=== PATIENT | female | born 1990 | race Caucasian/White ===

== ENCOUNTER 2017-10-10 10:57 | Outpatient (CLI) | payer OTHER | END 2017-10-10 13:01 | disposition home or self-care (01) | LOC: M LDO 10:57 | DX: O26.893 Other specified pregnancy related conditions, third trimester (principal); Z3A.35 35 weeks gestation of pregnancy; O99.213 Obesity complicating pregnancy, third trimester | CPT/HCPCS: 59025 ==

== ENCOUNTER 2017-10-15 22:30 | Outpatient (CLI) | payer OTHER | END 2017-10-15 23:45 | disposition home or self-care (01) | LOC: M LDO 22:30 | DX: Z03.79 Encounter for other suspected maternal and fetal conditions ruled out (principal); Z3A.36 36 weeks gestation of pregnancy | CPT/HCPCS: 59025 ==

== ENCOUNTER 2017-10-25 06:45 | Inpatient (IN) | payer OTHER ==
[2017-10-25] MEDS: LR 1,000 ML IV (09:55)
[2017-10-25] MEDS ORDERED: OXYTOCIN 30 UNITS IN 0.9% NaCl 500ML IV BAG (J2590) As Ordered (10:11)
[2017-10-25] MEDS: OXYTOCIN DRIP 30 UNITS in APPROPRIATE DILUENT 1 EA IV ×2 (10:19→19:05)
[2017-10-25 10:21] LABS: HEMATOCRIT 28.6 % (36.0-47.0); MEAN CORPUSCULAR HEMOGLOBIN 25.6 pg (27.0-33.0); MEAN CORPUSCULAR HGB CONC 31.5 g/dl (32.0-36.5); MEAN CORPUSCULAR VOLUME 81.5 fl (80.0-96.0); PLATELET COUNT, AUTOMATED 262 10^3/uL (150-450); RED BLOOD COUNT 3.51 10^6/uL (4.00-5.40); RED CELL DISTRIBUTION WIDTH 15.6 % (11.5-14.5); WHITE BLOOD COUNT 9.3 10^3/uL (4.0-10.0)
[2017-10-25] MEDS: LACTATED RINGER'S 1000 ML IV (13:25)
[2017-10-25] MEDS ORDERED: FENTANYL 2MCG/ML ROPIVACAINE 0.2% IN 0.9% NACL 200ML IVBAG As Ordered (13:48)
[2017-10-25] MEDS ORDERED: NALOXONE INJ 0.4 MG/1 ML VIAL (J2310) IV (15:30)
[2017-10-25] MEDS ORDERED: LACTATED RINGER'S 1000 ML IV (15:30)
[2017-10-25] MEDS ORDERED: diphenhydrAMINE INJ 50MG/ML VIAL (J1200) IV (15:30)
[2017-10-25] MEDS ORDERED: EPIDURAL/PCA KEYS XX (15:30)
[2017-10-25] MEDS ORDERED: REFRIGERATOR IV KEYS XX (15:30)
[2017-10-25] MEDS ORDERED: ONDANSETRON 4MG/2ML VIAL (J2405) IV (15:30)
[2017-10-25] MEDS ORDERED: ePHEDrine SULFATE 25 MG/5 ML(5MG/ML) SYRINGE IV (15:30)
[2017-10-25] MEDS ORDERED: FENTANYL/ROPIVACAINE/NACL BAG 200 ML EPIDURAL (15:30)
[2017-10-25] MEDS ORDERED: EPIDURAL COMMENT XX (15:30)
[2017-10-25] MEDS ORDERED: METOCLOPRAMIDE INJ 10MG/2ML VIAL (J2765) IV (19:15)
[2017-10-25] MEDS ORDERED: MEASLES,MUMPS,RUBELLA VACCINE INJ (MMR-II) (90707) SC (19:15)
[2017-10-25] MEDS ORDERED: RHOGAM 300 MCG (1500 IU) INJ (J2790) IM (19:15)
[2017-10-25] MEDS ORDERED: DIBUCAINE 1% OINTMENT 30GM TOP (19:15)
[2017-10-25] MEDS: DOCUSATE SODIUM 100 MG CAP PO (22:15)
[2017-10-25] MEDS: IBUPROFEN 800 MG TAB PO (22:16)
[2017-10-26] MEDS: ACETAMINOPHEN TAB 650MG DOSE (2X325MG) PO (01:24)
[2017-10-26] MEDS: PRENATAL VITAMINS CHEWABLE TABLET PO (09:40)
[2017-10-26] MEDS: DOCUSATE SODIUM 100 MG CAP PO ×2 (09:40→20:35)
[2017-10-26] MEDS: IBUPROFEN 800 MG TAB PO (12:46)
[2017-10-27] MEDS: DOCUSATE SODIUM 100 MG CAP PO (10:08)
[2017-10-27] MEDS: PRENATAL VITAMINS CHEWABLE TABLET PO (10:09)
== END 2017-10-27 12:25 | disposition home or self-care (01) | DRG 775 ==
LOC: M LDO 06:45 → M LDI 09:24 → M OBS 20:56
PROVIDERS: Obstetrics & Gynecology
PROC: 10E0XZZ Delivery of Products of Conception, External Approach (ICD-10-PCS; principal; 2017-10-26)
DX: O42.02 Full-term premature rupture of membranes, onset of labor within 24 hours of rupture (principal); O99.02 Anemia complicating childbirth; Z3A.37 37 weeks gestation of pregnancy; D64.9 Anemia, unspecified; Z37.0 Single live birth

== ENCOUNTER 2017-12-27 10:19 | Day surgery (SDC) | payer OTHER ==
[~2017-12-27 10:19] MED LIST: LR 1,000 ML IV
[2017-12-27 10:42] LABS: HEMATOCRIT 35.2 % (36.0-47.0); HEMOGLOBIN 11.3 g/dl (12.0-15.5); MEAN CORPUSCULAR HEMOGLOBIN 27.5 pg (27.0-33.0); MEAN CORPUSCULAR HGB CONC 32.1 g/dl (32.0-36.5); MEAN CORPUSCULAR VOLUME 85.6 fl (80.0-96.0); PLATELET COUNT, AUTOMATED 400 10^3/uL (150-450); RED BLOOD COUNT 4.11 10^6/uL (4.00-5.40); RED CELL DISTRIBUTION WIDTH 19.5 % (11.5-14.5); WHITE BLOOD COUNT 7.7 10^3/uL (4.0-10.0)
[2017-12-27 10:57] LABS: CONTROL LINE HCG INT CTR LINE PRESENT; HCG, SERUM QUALITATIVE NEGATIVE (NEGATIVE)
[2017-12-27] MEDS ORDERED: fentaNYL 250 MCG/5 ML INJECTION (J3010) As Ordered (12:25)
[2017-12-27] MEDS ORDERED: PROPOFOL 200 MG/20 ML VIAL As Ordered (12:25)
[2017-12-27] MEDS ORDERED: MIDAZOLAM INJ 2 MG/2 ML VIAL (J2250) As Ordered (12:25)
[2017-12-27] MEDS ORDERED: LIDOCAINE 2% INJ 100 MG/5 ML SDV (FOR ANES.) As Ordered (12:28)
[2017-12-27] MEDS ORDERED: dexameTHASONE 4 MG/ML 1ML VIAL (J1100) As Ordered ×2 (12:28)
[2017-12-27] MEDS ORDERED: ROCURONIUM BROMIDE 50 MG/5 ML VIAL As Ordered (12:28)
[2017-12-27] MEDS ORDERED: KETOROLAC 60 MG/2 ML VIAL (J1885) As Ordered (12:28)
[2017-12-27] MEDS ORDERED: ONDANSETRON 4MG/2ML VIAL (J2405) As Ordered (12:28)
[2017-12-27] MEDS: LIDOCAINE W/EPINEPHRINE 1% 20ML VIAL As Ordered ×2 (13:27→13:42)
[2017-12-27] MEDS ORDERED: GLYCOPYRROLATE INJ 0.2 MG/ML 2 ML VIAL As Ordered (13:27)
[2017-12-27] MEDS ORDERED: METOCLOPRAMIDE INJ 10MG/2ML VIAL (J2765) As Ordered (13:27)
[2017-12-27] MEDS ORDERED: NEOSTIGMINE 10 MG/10 ML VIAL (J2710) As Ordered (13:27)
[2017-12-27] MEDS: IODINE STRONG SOLN 15 ML BTL As Ordered (14:22)
[2017-12-27] MEDS: BUPIVACAINE HCL 0.5% 30 ML VIAL As Ordered (14:22)
[2017-12-27] MEDS ORDERED: fentaNYL 100 MCG/2 ML INJECTION (J3010) IV (14:30)
[2017-12-27] MEDS ORDERED: LR 1,000 ML IV (14:30)
[2017-12-27] MEDS ORDERED: PERCOCET 5MG/325MG TAB PO (14:30)
[2017-12-27] MEDS: ONDANSETRON 4MG/2ML VIAL (J2405) IV (15:05)
[2017-12-27] MEDS: METOCLOPRAMIDE INJ 10MG/2ML VIAL (J2765) IV (15:54)
== END 2017-12-27 17:41 | disposition home or self-care (01) ==
LOC: M SDC 10:19
DX: Z30.2 Encounter for sterilization (principal); R87.619 Unspecified abnormal cytological findings in specimens from cervix uteri; N87.1 Moderate cervical dysplasia; D64.9 Anemia, unspecified
CPT/HCPCS: 58661

== ENCOUNTER 2018-12-14 05:54 | Inpatient (IN) | payer OTHER ==
[2018-12-14] VITALS (8 sets, daily range): BP systolic 103–139; BP diastolic 56–70
[~2018-12-14] VITALS: Ht 157.5 cm; Wt 81.4 kg
[~2018-12-14 05:54] MED LIST changes: +COLA100C5 PO; +FERR325T3 PO; +IBUP-1114 PO; -LR 1,000 ML IV; +MAPA500T2 PO; +NUPE1OIN2 TOP; +PRENTAB9 PO
[2018-12-14 06:21] LABS: HEMATOCRIT 37.2 % (36.0-47.0); HEMOGLOBIN 11.9 g/dl (12.0-15.5); MEAN CORPUSCULAR HEMOGLOBIN 28.5 pg (27.0-33.0); PLATELET COUNT, AUTOMATED 411 10^3/uL (150-450); RED BLOOD COUNT 4.18 10^6/uL (4.00-5.40); WHITE BLOOD COUNT 8.3 10^3/uL (4.0-10.0)
[2018-12-14 06:43] LABS: HCG, SERUM QUALITATIVE NEGATIVE (NEGATIVE)
[2018-12-14] MEDS ORDERED: ceFAZolin 2 GM/D5W 50 ML IV BAG (J0690 PER 500MG) As Ordered ONE (06:50)
[2018-12-14] MEDS ORDERED: BUPIVACAINE HCL 0.5% 30 ML VIAL As Ordered ONE (06:57)
[2018-12-14] MEDS ORDERED: FLUORESCEIN 10% (100MG/ML) 5 ML VIAL As Ordered ONE (06:57)
[2018-12-14] MEDS ORDERED: LR 1,000 ML IV ONE (07:00)
[2018-12-14] MEDS ORDERED: ceFAZolin SOD 2 GM in IV 1 EA IV ONE (07:00)
[2018-12-14] MEDS ORDERED: SUGAMMADEX SODIUM 500 MG/5 ML VIAL (BRIDION) As Ordered ONE (07:56)
[2018-12-14] MEDS ORDERED: HYDROmorphone HCL 2 MG/ML 1ML VIAL (J1170) As Ordered ONE (07:56)
[2018-12-14] MEDS ORDERED: fentaNYL 100 MCG/2 ML INJECTION (J3010) As Ordered ONE (07:56)
[2018-12-14] MEDS ORDERED: ROCURONIUM BROMIDE 50 MG/5 ML VIAL As Ordered ONE ×2 (07:56→08:38)
[2018-12-14] MEDS ORDERED: ONDANSETRON 4MG/2ML VIAL (J2405) As Ordered ONE (07:56)
[2018-12-14] MEDS ORDERED: ACETAMINOPHEN 1000MG 100ML IV BTL (OFIRMEV) (J0131 PER 10MG) As Ordered ONE (07:56)
[2018-12-14] MEDS ORDERED: propofoL 200 MG/20 ML VIAL As Ordered ONE ×2 (07:56→09:48)
[2018-12-14] MEDS ORDERED: MIDAZOLAM INJ 2 MG/2 ML VIAL (J2250) As Ordered ONE (07:56)
[2018-12-14] MEDS ORDERED: KETOROLAC 60 MG/2 ML VIAL (J1885) As Ordered ONE (07:56)
[2018-12-14] MEDS ORDERED: LIDOCAINE 2% INJ 100 MG/5 ML SDV (FOR ANES.) As Ordered ONE (07:56)
[2018-12-14] MEDS ORDERED: dexameTHASONE 4 MG/ML 1ML VIAL (J1100) As Ordered ONE (07:56)
[2018-12-14] MEDS ORDERED: ePHEDrine SULFATE 25 MG/5 ML(5MG/ML) SYRINGE As Ordered ONE (08:01)
[2018-12-14] MEDS ORDERED: MORPHINE 4 MG/ML 1ML VIAL/SYRINGE (J2270) IV PRN (10:15)
[2018-12-14] MEDS ORDERED: PROMETHAZINE INJ 25 MG/ML VIAL (J2550) IV PRN (10:15)
[2018-12-14] MEDS ORDERED: PERCOCET 5MG/325MG TAB PO PRN ×2 (10:15)
[2018-12-14] MEDS ORDERED: MEPERIDINE INJ 25 MG/ML VIAL (J2175) IV PRN (10:30)
[2018-12-14] MEDS ORDERED: METOCLOPRAMIDE INJ 10MG/2ML VIAL (J2765) IV PRN (10:30)
[2018-12-14] MEDS ORDERED: ONDANSETRON 4MG/2ML VIAL (J2405) IV PRN (10:30)
[2018-12-14] MEDS ORDERED: LR 1,000 ML IV SCH (10:30)
[2018-12-14] MEDS ORDERED: oxyCODONE 5MG TAB PO PRN (10:30)
[2018-12-14] MEDS ORDERED: fentaNYL 100 MCG/2 ML INJECTION (J3010) IV PRN (10:30)
[2018-12-14] MEDS: LR 1,000 ML IV SCH ×2 (11:15→20:37)
[2018-12-14] MEDS: KETOROLAC 30 MG/ML VIAL (J1885) IV SCH ×2 (16:01→20:36)
--- NOTE | 2018-12-14 16:10 | IPNPDOC ---
Text Note Date of Service The patient was seen on 12/14/18. NOTE Patient seen this afternoon. Deborah is POD#0 s/p uncomplicated TLH, cystoscopy this morning. EBL 50ml. Deborah reports feeling sore but pain medications are helping. She had some nausea earlier but no vomiting. Rodas catheter is in place. She has not yet been ambulatory. Vitals - VSS, afebrile, normotensive, non tachycardic General - AAOX3, laying in bed, somewhat groggy, but NAD Abdomen - 3 port sites well appearing and covered with dermabond. Abdomen soft, nondistended. Extremities - SCDs in place. - Rodas in place draining fluorescein stained urine. UO - 300ml in rodas bag. Doing well for POD#0. If fully ambulatory this evening, may remove rodas cat heter. Continue to advance diet as tolerated and encourage IS use. Likely discharge home in the AM. DO Selvin VS,Tamera, I+O VS, Tamera, I+O Laboratory Tests 12/14/18 06:08 Red Blood Count 4.18, Mean Corpuscular Volume 89.0, Mean Corpuscular Hemoglobin 28.5, Mean Corpuscular Hemoglobin Concent 32.0, Red Cell Distribution Width 15.0 H Vital Signs Date Time Temp Pulse Resp B/P (MAP) Pulse Ox O2 Delivery O2 Flow Rate FiO2 12/14/18 15:20 99.2 78 15 110/57 (74) 98 GIANA KONG DO Dec 14, 2018 16:10
[2018-12-14] MEDS ORDERED: NORCO, ANEXSIA 5/325MG TABLET (HYDROcodone/ACETAMINOPHEN) PO PRN ×2 (17:45)
[2018-12-15] VITALS: BP 118/63
[2018-12-15] MEDS: KETOROLAC 30 MG/ML VIAL (J1885) IV SCH ×2 (03:35→08:42)
[2018-12-15 04:00] VITALS: BP 122/61
[2018-12-15 07:59] LABS: BLOOD UREA NITROGEN 6 MG/DL (7-18); CALCIUM LEVEL 8.3 MG/DL (8.5-10.1); CARBON DIOXIDE LEVEL 27 MEQ/L (21-32); CHLORIDE LEVEL 109 MEQ/L (98-107); CREATININE FOR GFR 0.59 MG/DL (0.55-1.30); GLOMERULAR FILTRATION RATE > 60.0 (>60); GLUCOSE, FASTING 90 MG/DL (70-100); POTASSIUM SERUM 3.9 MEQ/L (3.5-5.1); SODIUM LEVEL 142 MEQ/L (136-145)
[2018-12-15 08:00] VITALS: BP 108/55
[2018-12-15 08:16] LABS: BASO % 0.3 % (0.0-1.0); EOS # 0.1 10^3/uL (0.0-0.50); HEMATOCRIT 27.5 % (36.0-47.0); LYMPH # 2.9 10^3/uL (1.5-6.5); LYMPH % 25.6 % (24.0-44.0); MEAN CORPUSCULAR HEMOGLOBIN 29.4 pg (27.0-33.0); MEAN CORPUSCULAR HGB CONC 33.1 g/dl (32.0-36.5); MEAN CORPUSCULAR VOLUME 88.7 fl (80.0-96.0); MONO # 0.8 10^3/uL (0.0-0.8); MONO % 7.1 % (0.0-5.0); NEUTROPHILS # 7.4 10^3/uL (1.8-7.7); NEUTROPHILS % 65.6 % (36.0-66.0); PLATELET COUNT, AUTOMATED 318 10^3/uL (150-450); WHITE BLOOD COUNT 11.3 10^3/uL (4.0-10.0)
--- NOTE | 2018-12-15 08:50 | DS.PDOC ---
Discharge Summary General Date of Admission Dec 14, 2018 at 05:54 Date of Discharge Dec 15, 2018 Discharge Summary HOSPITAL COURSE: Deborah Carolina was admitted to [facility] on 14Dec2018 for a planned hysterectomy for severe dysmenorrhea. She underwent an uncomplicated total laparoscopic hysterectomy and cystoscopy on that same day. Her post operative recovery course was unremarkable. On her day of discharge she met all appropriate discharge criteria. She was ambulating, voiding on her own, tolerating a regular diet, passing gas, and her pain was well controlled. DISCHARGE MEDICATIONS: Please see below. ALLERGIES: Please see below. PHYSICAL EXAMINATION ON DISCHARGE: VITAL SIGNS: Please see below. GENERAL: AAOX3, sitting up in bed, pleasant and conversant, NAD ABDOMINAL EXAMINATION: Abdomen soft, nondistended. Laparoscopic port sites well appearing. Dermabond in place. No tenderness to palpation. EXTREMITIES: No edema PSYCHIATRIC EXAMINATION: Affect appropriate LABORATORY DATA: Please see below. ACTIVITY: Pelvic rest for 6 weeks. DIET: Regular DISCHARGE PLAN: Discharge home DISPOSITION: Discharge home on 15Dec2018. DISCHARGE INSTRUCTIONS: Postoperatively, you should expect significant abdominal soreness following a laparoscopic surgery. We will provide oral pain medications, typically an anti- inflammatory (motrin) and an oral narcotic (percocet or norco). It is yudith mmended to take the anti-inflammatory medication three times daily, using the narcotic medication as needed in addition. Sometimes, narcotic medications can cause constipation, and we recommend using a stool softener, drinking plenty of water, increasing the fiber in your diet, and drinking prune juice if constipation becomes a significant issue. Dressings: Your laparoscopic incisions are typically closed with either absorbable stitches (covered with a gauze and plastic dressing which can be removed on the day following surgery) or with Dermabond (a medical adhesive). You may shower on the day following surgery. It is normal to have some pain at the incisions that is sharp. Signs of infection at the incision include pain, redness, swelling and drainage of pus from the incision. Precautions: Please contact the [facility] or the Emergency Room after hours for any of the following symptoms, * Fever (temperature > 101F) * Significant pain not controlled with oral pain medications * Significant nausea and vomiting with inability to tolerate any food or medication * Significant redness of the incisions or drainage from the incisions Return to normal: You should be able to resume normal activities and exercise within 4-6 weeks. You may notice more soreness with abdominal exercises, and this is to be expected. Avoid heavy lifting greater than 10 pounds until 4 weeks after surgery. Nothing in the vagina (no tampons, intercourse, or douching) for 6wks. You may resume sexual activity 8 weeks after surgery when cleared by your surgeon. ITEMS TO FOLLOWUP ON ON OUTPATIENT: 1. Post appointment on 28Dec2018 DISCHARGE CONDITION: Stable. TIME SPENT ON DISCHARGE: Greater than 20 minutes. Giana Montalvo DO Vital Signs/I&Os Vital Signs Date Time Temp Pulse Resp B/P (MAP) Pulse Ox O2 Delivery O2 Flow Rate FiO2 12/15/18 08:00 97.3 73 14 108/55 (72) 100 I&O- Last 24 Hours up to 6 AM 12/15/18 06:00 Intake Total 4200 ml Output Total 2300 ml Balance 1900 ml Laboratory Data Labs 24H Laboratory Tests 2 12/15/18 06:43: Anion Gap 6L, Glomerular Filtration Rate > 60.0, Blood Urea Nitrogen 6L, Creatinine 0.59, Sodium Level 142, Potassium Level 3.9, Chloride Level 109H, Carbon Dioxide Level 27, Calcium Level 8.3L CBC/BMP Laboratory Tests 12/15/18 06:43 Calcium Level 8.3 L Discharge Medications No Active Prescriptions or Reported Meds Allergies Coded Allergies: No Known Allergies (Unverified , 12/07/18) GIANA MONTALVO DO Dec 15, 2018 08:50
--- NOTE | 2018-12-15 08:53 | IPNPDOC ---
Text Note Date of Service The patient was seen on 12/15/18. NOTE Patient seen this AM Deborah is POD#1 s/p uncomplicated TLH, cystoscopy yes terday morning. EBL 50ml. Deborah reports feeling well this AM. She has minimal pain. She is ambulating, voiding on her own, tolerating a regular diet, and passing gas. Vitals - VSS, afebrile, normotensive, non tachycardic General - AAOX3, sitting up in bed, NAD, pleasant and conversant Abdomen - 3 port sites well appearing and covered with dermabond. Abdomen soft, nondistended. Extremities - No edema UO - Excellent Doing well and meeting all discharge criteria. Will discharge to home. Discussed discharge instructions and importance of no heavy lifting and nothing in the vagina for 6 weeks. All patient questions answered. Post op meds ordered at [facility]. DO Selvin VS,Tamera, I+O VS, Elizabethe, I+O Laboratory Tests 12/15/18 06:43 Calcium Level 8.3 L Vital Signs Date Time Temp Pulse Resp B/P (MAP) Pulse Ox O2 Delivery O2 Flow Rate FiO2 12/15/18 08:00 97.3 73 14 108/55 (72) 100 I&O- Last 24 Hours up to 6 AM 12/15/18 06:00 Intake Total 4200 ml Output Total 2300 ml Balance 1900 ml GIANA KONG DO Dec 15, 2018 08:53
[2018-12-15 09:24] LABS: HEMOGLOBIN 9.1 g/dl (12.0-15.5)
[2018-12-15 10:44] LABS: HEMATOCRIT 30.6 % (36.0-47.0); HEMOGLOBIN 9.8 g/dl (12.0-15.5); MEAN CORPUSCULAR HEMOGLOBIN 29.5 pg (27.0-33.0); MEAN CORPUSCULAR VOLUME 92.2 fl (80.0-96.0); PLATELET COUNT, AUTOMATED 313 10^3/uL (150-450); RED BLOOD COUNT 3.32 10^6/uL (4.00-5.40); WHITE BLOOD COUNT 10.6 10^3/uL (4.0-10.0)
[2018-12-15 12:00] VITALS: BP 120/61
--- NOTE | 2018-12-15 22:44 | RO ---
DATE OF PROCEDURE: 12/14/2018 PREPROCEDURE DIAGNOSIS: Persistent dysmenorrhea and abnormal uterine bleeding. POSTPROCEDURE DIAGNOSIS: Persistent dysmenorrhea and abnormal uterine bleeding. Uterus globular appearing, consistent in appearance with adenomyosis. PROCEDURE: Total laparoscopic hysterectomy and cystoscopy. SURGEON: Dr. Darell Montalvo [facility] DIRECTOR: Dr. Willian Falcon ANESTHESIA: General endotracheal anesthesia. FLUIDS: 1900 mL lactated Ringer's (LR). URINE OUTPUT: 450 mL. ESTIMATED BLOOD LOSS: 50 mL. COMPLICATIONS: None. ANTIBIOTICS: 2 grams of Ancef before procedure start. OPERATIVE FINDINGS: Enlarged globular appearing uterus consistent with adenomyosis. Fallopian tubes surgically absent bilaterally. Ovaries normal bilaterally. Normal liver edge. Normal gastric curve. On cystoscopy, normal appearing, intact bladder with no sutures, lesions, or defects and brisk efflux of urine seen from each ureteral orifice. DESCRIPTION OF PROCEDURE: The risks, benefits, indications and alternatives of the procedure were reviewed with the patient and informed consent was obtained. The patient was taken to the operating room where general anesthesia was obtained without difficulty. The patient was then placed in the lithotomy position using Devin stirrups and her arms were gently tucked to the sides with padding. An exam under anesthesia was then performed and was significant for a mobile 9- week size retroverted uterus with minimal descent. A surgical time-out was then performed, and the patient's name and the planned procedure were verified with the operative team. A Byers catheter was placed first to drain the bladder. A sterile speculum was then placed in the patient's vagina. The cervix was visualized. The cervix was then sounded to 9 cm in length. A Fidelis uterine manipulator was then placed as a means to manipulate the uterus. The speculum was then removed from the patient's vagina. Gloves were then exchanged and attention was then turned back to the patient's abdomen where a 5 mm skin incision was made in the inferior aspect of the umbilicus. 5 mm trocar and sleeve were then carefully introduced into the peritoneal cavity under direct visualization at a 90-degree angle while tenting up the abdominal wall. Intraperitoneal placement was confirmed under direct visualization and entry pressure was noted to be less than 5 mmHg. A pneumoperitoneum was then obtained with several liters of CO2 gas. Upon entry into the peritoneal cavity, structures immediately below the incision were inspected and found to be free of injury. A survey of the patient's abdomen and pelvis was notable for a normal-appearing liver and gastric curve. The uterus was enlarged and globular in appearance. The fallopian tubes were surgically absent on both sides. The ovaries were normal bilaterally. The ureters were identified bilaterally and were noted to be well away from the operative field. At this point, two additional 5 mm trocars were then inserted into the abdomen, one in the right lower quadrant and one in the left lower quadrant under direct visualization after skin incisions were made with a scalpel. Stabilizing the uterus with the VCare manipulator, a LigaSure was then used to clamp, cut, and ligate the round ligaments bilaterally. The anterior broad ligament was then incised along the bladder reflection bilaterally and the bladder was dissected off the lower uterine segment until the endopelvic fascia was visualized. The ureters again were identified bilaterally coursing away from the operative field. The utero-ovarian ligaments were then ligated as close as possible to the uterine corpus with the LigaSure. Th pedicles were inspected and hemostasis was assured. The uterine arteries were then identified, skeletonized and ligated bilaterally using the LigaSure electrocautery. The uterosacral ligaments and cardinal ligaments were then transected bilaterally using the LigaSure. Careful hemostasis was assured throughout this process. The colpotomy was then made with the monopolar L-hook device. The colpotomy was made circumferentially around the entire cervix using the TrialScopeare uterine manipulator as a guide. The entire cervix and uterus were then successfully amputated from the vagina. Excellent hemostasis was assured throughout this process. Attention was then turned to the patient's vagina. The uterus and cervix were then delivered through the vagina, and they were handed off the field. The vaginal cuff was then closed from below using #0 Vicryl suture in a running, fashion. Excellent hemostasis was assured throughout this process. The patient's Byers catheter was then removed and the cystoscope was primed. The cystoscope was then advanced through the urethra and into the bladder. The bladder was then distended with sterile saline and a systematic examination of the bladder was performed. The bladder was noted to be intact with no lesions, defects or sutures. Both ureteral orifices were seen bilaterally and brisk efflux of urine was seen from each opening. The cystoscope was then removed and the Byers catheter was replaced. Gloves and gown were then exchanged and attention was then turned back to the patient's abdomen, which was copiously irrigated. All operative sites were noted to be hemostatic. The vaginal cuff was noted to be hemostatic as well. Parviz was then placed along the vaginal cuff and operative pedicles. Careful inspection of all operative sites again and the vaginal cuff revealed continued excellent hemostasis. The pneumoperitoneum was then released and all CO2 was removed from the patient's abdomen. The trocars were then removed under direct visualization. There was no bleeding seen from the trocar sites. Skin incisions were then closed with Dermabond. A manual examination was then performed and the vagina demonstrated excellent suspension and elevation. The vagina was then irrigated to good effect and there was no bleeding seen at the cuff. A vaginal sweep was then performed and confirmed no retained foreign objects remained in the vagina. At the completion of the case, the sponge, instrument and needle counts were correct times three. The patient was taken to the post-anesthesia care unit (PACU) in stable condition. ANA M
== END 2018-12-15 12:20 | disposition home or self-care (01) | DRG 743 ==
LOC: M OR 05:54 → M PED 11:15
PROVIDERS: ADMIT Obstetrics & Gynecology; ATTEND Obstetrics & Gynecology
PROC: 0UTC4ZZ Resection of Cervix, Percutaneous Endoscopic Approach (ICD-10-PCS; 2018-12-14)
PROC: 0UT94ZZ Resection of Uterus, Percutaneous Endoscopic Approach (ICD-10-PCS; principal; 2018-12-14 07:30)
DX: N94.6 Dysmenorrhea, unspecified (principal); N93.8 Other specified abnormal uterine and vaginal bleeding; N80.0 Endometriosis of uterus

== ENCOUNTER → 2019-03-21 | Outpatient (CLI) | payer OTHER ==
--- NOTE | 2019-03-21 13:28 | REP ---
Chest x-ray: Two views. History: Wheezing. Findings: There is a hair braid artifact overlying the right perihilar region on the frontal view. There is an infiltrate in the left lower lobe. This is compatible with pneumonia with some discoid atelectasis. Remaining lung kc are clear. Pleural angles are sharp. Heart size is normal. Impression: Infiltrate and plate-like atelectasis left base consistent with pneumonia. Electronically Signed by Toney Umanzor MD 03/21/2019 03:37 P
== END ==
LOC: M LRY 12:38
PROVIDERS: ATTEND Nurse Practitioner Family
DX: R06.2 Wheezing (principal)
CPT/HCPCS: 71046; 94640; G0463

== ENCOUNTER → 2019-04-22 | Outpatient (CLI) | payer OTHER ==
--- NOTE | 2019-04-22 13:05 | REP ---
REASON: Cough. COMPARISON: 03/21/2019. FINDINGS: The superior mediastinal structures are midline. The cardiac silhouette is unremarkable in size, shape, and position. The diaphragmatic surfaces of the lungs are regular, and the costophrenic angles are clear. The pulmonary kc are clear. The imaged osseous structures are intact. IMPRESSION: There is no acute cardiopulmonary disease. Electronically Signed by Rj Gonzalez DO 04/22/2019 01:25 P
== END ==
LOC: M LRY 10:40
PROVIDERS: ATTEND Nurse Practitioner Family
DX: R05 Cough (principal)
CPT/HCPCS: 71046; 87804; G0463